=== PATIENT | male | born 1935 | race Caucasian/White ===

== ENCOUNTER 2019-01-18 10:26 | Inpatient (IN) ==
[2019-01-18 10:46] LABS: ALLEN TEST YES; BLOOD TYPE ARTERIAL; HCO3-(ACT) 25.6 mmoll (20.0-26.0); METHB 0.7 % (0.0-1.5); O2(CT) 12.8 mL/dL (15.0-23.0); O2HB 90.2 % (95.0-99.0); PCO2(98.6) 42 mmHg (35-45); PO2(98.6) 52 mmHg (60-100); SAMPLE BLOOD; SAO2 92.3 % (95.0-100.0); THB 10.1 g/dL (11.5-17.4)
[2019-01-18 10:48] LABS: MODALITY CANNULA
[2019-01-18 11:22] LABS: BASO# 0.05 X1000 (0.0-0.2); BASO% 0.4 % (0.0-0.8); EOS# 0.31 X1000 (0.0-0.7); EOS% 2.7 % (0.0-10.0); HEMATOCRIT 34.7 % (42.0-52.0); HEMOGLOBIN 10.3 g/dL (14.0-18.0); IMM GRAN# 0.02 X1000 (0.0-0.04); IMM GRAN% 0.2 % (0.0-0.5); LYMPH# 1.53 X1000 (1.2-3.4); LYMPH% 13.4 % (20.5-51.1); MCH 31.1 PG (27-31); MCHC 29.7 g/dL (33-37); MCV 104.8 FL (81-99); MONO# 0.77 X1000 (0.11-0.59); MONO% 6.7 % (1.7-9.3); MPV 10.9 FL (7.4-10.4); NEUT# 8.77 X1000 (1.4-6.5); NEUT% 76.6 % (42.2-75.2); PLT 138 X1000 (130-400); RBC 3.31 XMIL (4.7-6.1); WBC 11.45 X1000 (4.8-10.8)
[2019-01-18 11:23] LABS: INR 1.11; PROTIME 14.4 Seconds (11.0-16.0)
[2019-01-18 11:24] LABS: PTT 33.1 Seconds (22.3-41.8)
[2019-01-18 11:52] LABS: ALB/GLOB RATIO 1.7; ALBUMIN 4.3 g/dL (3.5-5.0); CALCIUM 9.1 mg/dL (8.8-10.2); POTASSIUM 4.7 mmol/L (3.5-5.1); TOTAL BILIRUBIN 0.38 mg/dL (0.20-1.00); TOTAL PROTEIN 6.8 g/dL (6.3-8.3)
[2019-01-18 13:18] LABS: URINE SOURCE CLEAN CATCH
[2019-01-18 13:23] LABS: BILIRUBIN URINE NEGATIVE (NEGATIVE); BLOOD URINE NEGATIVE (NEGATIVE); COLOR YELLOW; GLUCOSE URINE NEGATIVE (NEGATIVE); KETONE URINE NEGATIVE (NEGATIVE); LEUKOCYTES URINE MODERATE (NEGATIVE); NITRITE URINE NEGATIVE (NEGATIVE); PROTEIN URINE 30 mg/dL (NEGATIVE); TURBIDITY URINE CLEAR (CLEAR); UR EPITHELIAL CELLS <10 /HPF (<10); URINE BACTERIA NEGATIVE /HPF; URINE RBC <10 /HPF (<10); URINE WBC 20-40 /HPF (<10); UROBILINOGEN URINE NORMAL (NORMAL)
[2019-01-19 06:25] LABS: ALB/GLOB RATIO 1.3; ALBUMIN 3.5 g/dL (3.5-5.0); CALCIUM 8.5 mg/dL (8.8-10.2); CREATININE 3.2 mg/dL (0.7-1.2); MAGNESIUM 1.8 mg/dL (1.5-2.7); POTASSIUM 4.2 mmol/L (3.5-5.1); TOTAL BILIRUBIN 0.32 mg/dL (0.20-1.00); TOTAL PROTEIN 6.3 g/dL (6.3-8.3)
[2019-01-19 08:31] LABS: HEMOGLOBIN 8.7 g/dL (14.0-18.0); LYMPH# 0.84 X1000 (1.2-3.4); LYMPH% 14.8 % (20.5-51.1); MCH 32.1 PG (27-31); MCHC 31.1 g/dL (33-37); MCV 103.3 FL (81-99); MONO% 1.8 % (1.7-9.3); MPV 11.9 FL (7.4-10.4); NEUT# 4.75 X1000 (1.4-6.5); NEUT% 83.4 % (42.2-75.2); PLT 123 X1000 (130-400); RBC 2.71 XMIL (4.7-6.1); RDW 12.5 % (11.5-14.5); WBC 5.69 X1000 (4.8-10.8)
[2019-01-19 16:21] LABS: UR CREAT RANDOM 28.2 mg/dL (14-26)
[2019-01-20 05:26] LABS: BASO# 0.01 X1000 (0.0-0.2); BASO% 0.1 % (0.0-0.8); HEMATOCRIT 29.1 % (42.0-52.0); HEMOGLOBIN 8.9 g/dL (14.0-18.0); IMM GRAN# 0.02 X1000 (0.0-0.04); IMM GRAN% 0.2 % (0.0-0.5); LYMPH% 10.1 % (20.5-51.1); MCH 31.1 PG (27-31); MCHC 30.6 g/dL (33-37); MCV 101.7 FL (81-99); MONO# 0.38 X1000 (0.11-0.59); MONO% 3.9 % (1.7-9.3); MPV 11.5 FL (7.4-10.4); NEUT# 8.46 X1000 (1.4-6.5); NEUT% 85.7 % (42.2-75.2); PLT 141 X1000 (130-400); RBC 2.86 XMIL (4.7-6.1); RDW 12.7 % (11.5-14.5); WBC 9.87 X1000 (4.8-10.8)
[2019-01-20 05:47] LABS: CREATININE 3.4 mg/dL (0.7-1.2); POTASSIUM 3.8 mmol/L (3.5-5.1)
[2019-01-20 06:30] LABS: LYMPHS 11 % (21-51); MONO 2 % (1-9); SEGS 87 % (42-75)
[2019-01-21 09:31] LABS: BASO# 0.01 X1000 (0.0-0.2); BASO% 0.1 % (0.0-0.8); HEMATOCRIT 34.4 % (42.0-52.0); HEMOGLOBIN 10.8 g/dL (14.0-18.0); IMM GRAN# 0.03 X1000 (0.0-0.04); IMM GRAN% 0.4 % (0.0-0.5); LYMPH# 1.06 X1000 (1.2-3.4); LYMPH% 13.2 % (20.5-51.1); MCH 31.8 PG (27-31); MCHC 31.4 g/dL (33-37); MCV 101.2 FL (81-99); MONO# 0.24 X1000 (0.11-0.59); MPV 11.4 FL (7.4-10.4); NEUT# 6.71 X1000 (1.4-6.5); NEUT% 83.3 % (42.2-75.2); PLT 163 X1000 (130-400); RDW 12.7 % (11.5-14.5); WBC 8.05 X1000 (4.8-10.8)
[2019-01-21 10:09] LABS: CALCIUM 9.2 mg/dL (8.8-10.2); CREATININE 3.4 mg/dL (0.7-1.2); PHOSPHORUS 3.9 mg/dL (2.7-4.5); POTASSIUM 3.7 mmol/L (3.5-5.1)
[2019-01-22 06:22] LABS: CALCIUM 8.7 mg/dL (8.8-10.2); CREATININE 3.6 mg/dL (0.7-1.2)
[2019-01-22 06:29] LABS: HEMATOCRIT 31.9 % (42.0-52.0); MCH 31.7 PG (27-31); MCHC 31.3 g/dL (33-37); MCV 101.3 FL (81-99); MPV 11.8 FL (7.4-10.4); RBC 3.15 XMIL (4.7-6.1); RDW 12.9 % (11.5-14.5)
[2019-01-23 06:10] LABS: CALCIUM 8.5 mg/dL (8.8-10.2); CREATININE 3.4 mg/dL (0.7-1.2); POTASSIUM 4.4 mmol/L (3.5-5.1)
[2019-01-24 05:30] LABS: BASO# 0.01 X1000 (0.0-0.2); BASO% 0.1 % (0.0-0.8); HEMATOCRIT 34.5 % (42.0-52.0); HEMOGLOBIN 10.9 g/dL (14.0-18.0); IMM GRAN# 0.06 X1000 (0.0-0.04); IMM GRAN% 0.5 % (0.0-0.5); LYMPH# 2.18 X1000 (1.2-3.4); LYMPH% 19.8 % (20.5-51.1); MCH 31.5 PG (27-31); MCHC 31.6 g/dL (33-37); MCV 99.7 FL (81-99); MONO# 0.91 X1000 (0.11-0.59); MONO% 8.3 % (1.7-9.3); MPV 11.4 FL (7.4-10.4); NEUT# 7.87 X1000 (1.4-6.5); NEUT% 71.3 % (42.2-75.2); PLT 185 X1000 (130-400); RBC 3.46 XMIL (4.7-6.1); RDW 12.8 % (11.5-14.5); WBC 11.03 X1000 (4.8-10.8)
[2019-01-24 05:58] LABS: CALCIUM 8.1 mg/dL (8.8-10.2); CREATININE 3.3 mg/dL (0.7-1.2); POTASSIUM 4.3 mmol/L (3.5-5.1)
[2019-01-25 05:21] LABS: HEMATOCRIT 35.6 % (42.0-52.0); HEMOGLOBIN 11.3 g/dL (14.0-18.0); MCH 32.2 PG (27-31); MCHC 31.7 g/dL (33-37); MCV 101.4 FL (81-99); MPV 11.6 FL (7.4-10.4); RBC 3.51 XMIL (4.7-6.1); RDW 13.1 % (11.5-14.5); WBC 12.99 X1000 (4.8-10.8)
[2019-01-25 05:55] LABS: CREATININE 3.2 mg/dL (0.7-1.2); POTASSIUM 4.9 mmol/L (3.5-5.1)
[2019-01-26 09:23] LABS: INR 1.13; PROTIME 14.7 Seconds (11.0-16.0)
[2019-01-26 16:38] VITALS: BP 161/71
== END 2019-01-26 18:53 | DRG 177 ==
LOC: SUPCPDRO → ED 10:26 → SUATTDRO 14:52 → 1N 14:52
PROVIDERS: ATTEND Internal Medicine